=== PATIENT | female | born 1960 | race Two or more races ===

== ENCOUNTER 2022-12-31 14:01 | Emergency (ER) | payer OTHER ==
[~2022-12-31] VITALS: Ht 162.6 cm; Wt 94.0 kg
[2022-12-31 16:31] VITALS: BP 128/53
[2022-12-31] MEDS ORDERED: KETOROLAC TROMETH 30 MG/ML 1ML VIAL IM ONE (17:00)
[2022-12-31] MEDS ORDERED: GABA100C9 PO (17:04)
[2022-12-31] MEDS ORDERED: LIDO5DIS21 TOP (17:04)
[2022-12-31] MEDS ORDERED: CYCL-837 PO (17:04)
[2022-12-31] MEDS ORDERED: HYDROcodone-ACET 5/325MG TAB PO ONE (17:15)
== END 2022-12-31 17:19 | disposition home or self-care (01) ==
LOC: ER 14:01
DX: M54.30 Sciatica, unspecified side (principal)
CPT/HCPCS: 72100